=== PATIENT | male | born 1980 | race Caucasian/White ===

== ENCOUNTER 2017-11-15 08:02 | Day surgery (SDC) | payer OTHER ==
[~2017-11-15 08:02] MED LIST: Albuterol 0.083% 2.5 MG/3 ML Neb Soln NEB SCH; Lactated Ringers 1,000 ML IV SCH; Lidocaine 1% 4 ML ONE; Lidocaine 1%/Sod Bicarbonate in NS 8.4% 1 ML Syringe IDERM PRN; Midazolam 1 MG/ML 2 ML SDV ONE; Ondansetron 4 MG/2 ML SDV ONE; Propofol 200 MG/20 ML SDV ONE; Sodium Chloride 0.9% 10 ML Syringe FLUSH PRN; fentaNYL 250 MCG/5 ML SDV ONE
[2017-11-15] MEDS ORDERED: Bupivacaine 0.25% 30 ML SDV ONE (08:15)
--- NOTE | 2017-11-15 08:23 | PCM.PREANE ---
Preanesthetic Assessment - Anesthesia/Transfusion/Family Hx Anesthesia History: Prior Anesthesia Without Reaction Family History of Anesthesia Reaction: No Transfusion History: No Prior Transfusion(s) - Review of Systems General: No Symptoms Pulmonary: No Symptoms, Cough (smokers) Cardiovascular: Dyspnea on Exertion Gastrointestinal: No Symptoms Neurological: No Symptoms Other: Reports: None - Physical Assessment NPO Status Date: 11/14/17 NPO Status Time: 00:00 Pulse: 63 O2 Sat by Pulse Oximetry: 97 Respiratory Rate: 20 Blood Pressure: 133/76 Temperature: 36.9 C Height: 1.83 m Weight: 81 kg ASA Class: 2 Mental Status: Alert & Oriented x3 Airway Class: Mallampati = 1 Dentition: Reports: Normal Dentition, Caries Thyro-Mental Finger Breadths: 3 Mouth Opening Finger Breadths: 3 ROM/Head Extension: Full Lungs: Clear to Auscultation, Normal Respiratory Effort Cardiovascular: Regular Rate, Regular Rhythm, No Murmurs - Lab Values: Laboratory Last Values MRSA (PCR) Negative 11/13/17 11:54 - Allergies Allergies/Adverse Reactions: Allergies Allergy/AdvReac Type Severity Reaction Status Date / Time No Known Allergies Allergy Verified 11/13/17 12:12 - Blood Blood Available: No Product(s) Available: None - Anesthesia Plan Pre-Op Medication Ordered: None - Acknowledgements Anesthesia Type Planned: General Anesthesia Pt an Appropriate Candidate for the Planned Anesthesia: Yes Alternatives and Risks of Anesthesia Discussed w Pt/Guardian: Yes Pt/Guardian Understands and Agrees with Anesthesia Plan: Yes PreAnesthesia Questionnaire HEENT History: Reports: Allergic Rhinitis, Other (See Below) Other HEENT History: Dentures to upper Respiratory History: Reports: Other (See Below) Other Respiratory History: Patient uses proventil inhaler "for allergies". Patient denies dyspnea and SOB. Musculoskeletal History: Reports: Other (See Below) Other Musculoskeletal History: Right knee meniscus tear Neurological History: Reports: Concussion Oncologic (Cancer) History: Reports: None - Past Surgical History HEENT Surgical History: Reports: Oral Surgery Respiratory Surgical History: Reports: None GI Surgical History: Reports: None Female Surgical History: Male Surgical History: Reports: None Neurological Surgical History: Reports: None Musculoskeletal Surgical History: Reports: None Oncologic Surgical History: Reports: None Dermatological Surgical History: Reports: None - SUBSTANCE USE Smoking Status *Q: Current Every Day Smoker Tobacco Use Within Last Twelve Months: Cigarettes Days Per Week of Alcohol Use: 2 Number of Drinks Per Day: 1 Total Drinks Per Week: 2 Recreational Drug Use History: No - HOME MEDS Home Medications: Home Meds Albuterol [Ventolin HFA] 1 - 2 puff INH Q4H PRN 11/13/17 [History] Ibuprofen 1 - 3 tab PO Q6H PRN 11/13/17 [History] - CURRENT (IN HOUSE) MEDS Current Meds: Current Medications Albuterol (Proventil Neb Soln) 2.5 mg NEB ONETIME KARISSA Stop: 11/15/17 18:00 Epinephrine HCl (Adrenalin) 3 mg .XX ONETIME ONE Stop: 11/15/17 08:41 Lactated Ringer's (Ringers, Lactated) 1,000 mls @ 125 mls/hr IV ASDIRECTED KARISSA Stop: 11/15/17 23:00 Lidocaine/Sodium Bicarbonate (Buffered Lidocaine 1% In Ns 8.4%) 0.25 ml IDERM ONETIME PRN PRN Reason: Prior to IV Start Stop: 11/15/17 18:00 Sodium Chloride (Saline Flush) 10 ml FLUSH ASDIRECTED PRN PRN Reason: Keep Vein Open Stop: 11/15/17 18:00 Discontinued Medications Fentanyl (Sublimaze) Confirm Administered Dose 250 mcg .ROUTE .STK-MED ONE Stop: 11/15/17 07:19 Lidocaine HCl (Xylocaine-Mpf 1%) Confirm Administered Dose 4 mls @ as directed .ROUTE .STK-MED ONE Stop: 11/15/17 07:19 Midazolam HCl (Versed 1 Mg/Ml) Confirm Administered Dose 2 mg .ROUTE .STK-MED ONE Stop: 11/15/17 07:19 Ondansetron HCl (Zofran) Confirm Administered Dose 4 mg .ROUTE .STK-MED ONE Stop: 11/15/17 07:18 Propofol (Diprivan 20 Ml) Confirm Administered Dose 200 mg .ROUTE .STK-MED ONE Stop: 11/15/17 07:19
[2017-11-15] MEDS ORDERED: EPINEPHrine 1 MG/ML 30 ML MDV ONE (08:40)
[2017-11-15] MEDS ORDERED: Albuterol 0.083% 2.5 MG/3 ML Neb Soln NEB ONE (09:00)
[2017-11-15] MEDS ORDERED: Lactated Ringers 1,000 ML ONE (09:12)
[2017-11-15] MEDS ORDERED: HYDROmorphone 0.5 MG/0.5 ML Syringe ONE ×2 (09:20→09:36)
--- NOTE | 2017-11-15 09:58 | PCM.POSTAN ---
POST ANESTHESIA ASSESSMENT - MENTAL STATUS Mental Status: Somnolent - VITAL SIGNS Pulse Rate: 74 SaO2: 93 Resp Rate: 9 Blood Pressure: 114/61 Temperature: 37.2 C - RESPIRATORY Respiratory Status: Respiratory Rate WNL, Airway Patent, O2 Saturation Stable, Supplemental Oxygen - CARDIOVASCULAR CV Status: Pulse Rate WNL, Blood Pressure Stable - GASTROINTESTINAL GI Status: No Symptoms - PAIN Pain Score: 0 - POST OP HYDRATION Hydration Status: Adequate & Stable - OBSERVATIONS Free Text/Narrative:: no anesthesia complications noted
[2017-11-15] MEDS ORDERED: fentaNYL 100 MCG/2 ML SDV IVPUSH PRN (09:59)
[2017-11-15] MEDS ORDERED: HYDROmorphone 0.5 MG/0.5 ML Syringe IVPUSH PRN (09:59)
[2017-11-15] MEDS ORDERED: Ketorolac 30 MG/ML SDV IVPUSH PRN (09:59)
[2017-11-15] MEDS ORDERED: Acetaminophen/HYDROcodone 325-5 MG Tab PO PRN (10:59)
--- NOTE | 2017-11-20 11:49 | PCM.OPNOTE ---
- General Post-Op/Procedure Note Date of Surgery/Procedure: 11/15/17 Operative Procedure(s): right knee video arthroscopy with partial medial meniscectomy Pre Op Diagnosis: right knee medial meniscus tear Post-Op Diagnosis: Same Anesthesia Technique: General LMA, Local Primary Surgeon: Triston Brown Anesthesia Provider: James Demarco Dispatcher Ship Pilot: Becca Whittaker EBBert in mLs: 5 Complications: None Condition: Good
--- NOTE | 2017-11-20 12:28 | OR ---
DATE OF OPERATION: 11/15/2017 SURGEON: Triston Brown MD OPERATION PERFORMED: Right knee video arthroscopy with partial medial meniscectomy. PREOPERATIVE DIAGNOSIS: Right knee medial meniscus tear. POSTOPERATIVE DIAGNOSIS: Right knee medial meniscus tear. ANESTHESIA: General LMA with local. ANESTHESIA PROVIDER: James Demarco CRNA. VETERINARY PHARMACOLOGIST: Becca Whittaker LPN. ESTIMATED BLOOD LOSS: 5 mL. COMPLICATIONS: None. CONDITION: Stable. DESCRIPTION OF PROCEDURE: The patient was identified in the preop holding area. Proper site was marked and identified by the surgeon. The patient was taken back to the operating theater where after adequate anesthesia, the patient's left lower extremity was placed in a well leg cortez. Right lower extremity had a nonsterile tourniquet applied and was then placed in a C-clamp cortez. The bed was then lowered. The right lower extremity was then sterilely prepped and draped in the usual sterile fashion. OR time-out was performed. The patient received 2 g of IV Ancef. At this time, the right lower extremity was exsanguinated. Tourniquet was insufflated to 250 mmHg. A standard anterolateral portal was created. Scope trocar was introduced. 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 There were no loose foreign bodies in the mediolateral gutter. Attention was turned to the medial compartment. An anteromedial portal was created with the use of a spinal needle. At this time, cursory examination showed a diffuse degenerative tear at the posterior third of the horn of the medial meniscus with an unstable flap on the inferior portion. He was also noted to have an unstable portion near the root. At this time, partial medial meniscectomy of roughly over a half to three quarters of the posterior third was completed. The root was found to be stable once it was debrided and the unstable portion was removed. At this time, the patient was noted to have chondral grade 1 chondromalacia changes to the medial compartment. ACL was intact on the notch. Lateral compartment showed grade 1 fissuring, but otherwise no significant abnormalities. At this time, excess saline was then drained from the knee. A 3-0 nylon simple suture was used for closure of the skin. Marcaine 0.25% was injected. The patient had a sterile soft dressing applied and was sent to PACU in stable condition. MMODAL /[id number]
== END 2017-11-15 12:20 | disposition home or self-care (01) ==
LOC: JD.SDS 08:02
PROVIDERS: ATTEND Orthopaedic Surgery
DX: S83.241A Other tear of medial meniscus, current injury, right knee, initial encounter (principal); J30.1 Allergic rhinitis due to pollen; F17.210 Nicotine dependence, cigarettes, uncomplicated; Z79.899 Other long term (current) drug therapy
CPT/HCPCS: 29881; 87641; 94640; A9270; J0171; J1170; J1885; J2001; J2250; J2405; J3010; J3490; J7120; 01400; J2704